=== PATIENT | male | born 1940 | race Caucasian/White ===

== ENCOUNTER 2023-02-12 07:30 | Observation (INO) ==
--- NOTE | 2023-01-23 10:51 | PAT Medication Instructions ---
Medication Instructions Date of Service January 23, 2023 Home Medications aspirin 81 mg capsule 81 mg PO HS atorvastatin 20 mg tablet 20 mg PO HS cholecalciferol (vitamin D3) 25 mcg (1,000 unit) capsule (Vitamin D3) 25 mcg PO QAM cyanocobalamin (vitamin B-12) 1,000 mcg tablet,extended release (Vitamin B-12 ER) 1,000 mcg PO QAM docusate sodium 100 mg capsule (Colace) 100 mg PO HS lysine 500 mg tablet (L-Lysine) 500 mg PO QAM metoprolol tartrate 25 mg tablet 12.5 mg PO BID DO NOT take the morning of surgery cholecalciferol (vitamin D3) 25 mcg (1,000 unit) capsule (Vitamin D3) 25 mcg PO QAM cyanocobalamin (vitamin B-12) 1,000 mcg tablet,extended release (Vitamin B-12 ER) 1,000 mcg PO QAM lysine 500 mg tablet (L-Lysine) 500 mg PO QAM Take morning of surgery With a small sip of water, OTHERWISE NOTHING TO EAT OR DRINK AFTER MIDNIGHT: metoprolol tartrate 25 mg tablet 12.5 mg PO BID Take evening before surgery aspirin 81 mg capsule 81 mg PO HS (unless surgeon directed otherwise) atorvastatin 20 mg tablet 20 mg PO HS docusate sodium 100 mg capsule (Colace) 100 mg PO HS metoprolol tartrate 25 mg tablet 12.5 mg PO BID Other Notes If you have any questions please call us at [phone] or [phone] or [phone] or [phone]
--- NOTE | 2023-01-28 11:03 | History & Physical Report ---
Date of Service January 28, 2023 DATE OF SURGERY: 02/12/23 PROCEDURE: Left Total Knee Arthroplasty Surgeon: Kevin Haley Assessment & Plan (1) Arthritis of knee, left: Plan: Risks and benefits of procedure discussed in detail today, patient would like to proceed with a left total knee replacement at [facility] as scheduled. will obtain medical clearance prior to surgery as well as obtain PATs at [facility]. Will place on ASA 81mg po bid x 1 month post op, f/u 2 weeks post op for routine post-operative care and x-ray, sooner if having any problems. discussed possible OPJ with HHPT. The risks and benefits have been discussed including, but not limited to, risk of infection, nerve injury, stiffness, loss of motion, failure to improve, etc. Reasonable outcomes and options of treatment were discussed. An explanation of appropriate alternatives to the procedure that may be advantageous were discussed and their risks and benefits, as well as the risks and benefits of not proceeding with treatment. I offered to answer any additional inquiries concerning the treatment involved. All the patient's questions were answered. The patient is agreeable, understanding of the treatment plan and alternatives, and wishes to proceed with the treatment plan. History of Present Illness Chief Complaint: left knee pain Primary Care Provider: Dariusz Leiva Adria is a pleasant 82-year-old male who presents for preop evaluation prior to his left total knee replacement. He states that he is having pain in his knee for many years now and is gradually worsened to the point that is now affecting his daily activities, he has tried oral anti-inflammatories and Tylenol without relief. Prior left knee arthroscopy by Dr. Haley approximate 20 years ago. Rates his current pain is 7 out of 10 is now affecting his daily activities including walking standing going up and down stairs at this point time is failed conservative measures and like proceed with left total knee replacement Allergies Allergy/AdvReac Type Severity Reaction Status Date / Time No Known Allergies Allergy Verified 01/22/23 13:51 Home Medications Medication Instructions Recorded Confirmed Type aspirin 81 mg capsule 81 mg PO HS 01/22/23 01/22/23 History atorvastatin 20 mg tablet 20 mg PO HS 01/22/23 01/22/23 History cholecalciferol (vitamin D3) 25 25 mcg PO QAM 01/22/23 01/22/23 History mcg (1,000 unit) capsule (Vitamin D3) cyanocobalamin (vitamin B-12) 1,000 mcg PO QAM 01/22/23 01/22/23 History 1,000 mcg tablet,extended release (Vitamin B-12 ER) docusate sodium 100 mg capsule 100 mg PO HS 01/22/23 01/22/23 History (Colace) lysine 500 mg tablet (L-Lysine) 500 mg PO QAM 01/22/23 01/22/23 History metoprolol tartrate 25 mg tablet 12.5 mg PO BID 01/22/23 01/22/23 History Past Med/Surg History Medical History Hyperlipidemia Hypertension Spinal stenosis 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 Hx of cardiac cath ~10 years ago, done due to age and activity; [facility]; f/u [facility] in [place] Hx of colonoscopy Hx of inguinal hernia repair bilat. Hx of squamous cell carcinoma excision 2019- in his upper jaw; also removed lymph nodes from his neck; done in [place]>currently has an obturator in his jaw that was placed during surgery for his jaw Hx of tonsillectomy Social History Smoking Status: Never smoker Second Hand Exposure: No; Hx Alcohol Use: Yes Alcohol type: beer Hx Substance Use: No Preferred Language: Faroese Communication Ability: Effective Sales Representative [employer] Furniture Required: No Beliefs That Will Affect Care: None Current Living Situation: Alone Feels Safe at Home: Yes Assistive Devices: Glasses and Other Review of Systems Review of Systems: All systems reviewed & are unremarkable except as noted in HPI & below Constitutional: no fever, no chills and no sweats Respiratory: no cough and no dyspnea Cardiovascular: no chest pain, no dyspnea and no orthopnea Gastrointestinal: no abdominal pain, no nausea and no vomiting Musculoskeletal: as per Subjective / HPI Physical Exam Physical Exam: HT: 5ft 10in WT: 72.3kg Constitutional: WD/WN, vitals as above no acute distress Respiratory: normal respiratory effort, lungs clear to auscultation no respiratory distress, no labored breathing and does not use accessory muscles Cardiovascular: RRR, no murmur, no edema Gastrointestinal (Abdomen): normal bowel sounds, soft, nontender, no hepatosplenomegaly Musculoskeletal: Knee: + knee abnormal to inspection (LEFT KNEE), + effusion (+1 effusion), + surgical incision (well healed portals), + limited ROM of knee (ROM 0/3/110), + knee ROM with crepitation, + joint line tenderness (medial joint line) and + Cece's sign positive; no deformity, no skin erythema, no ecchymosis, no valgus laxity, no varus laxity, anterior drawer test negative, Sergio's sign negative and pivot shift test negative Results & Data Results & Data ([facility]) Diagnostic Findings Left Knee X-ray: left knee series confirm advanced degenerative changes to the left knee, greatest medial compartments and patellofemoral joint, showing joint space narrowing, osteophyte formation and subchondral sclerosis. no acute bony pathology noted.
--- NOTE | 2023-01-28 14:27 | Anesthesiology Consultation ---
Date of Service January 28, 2023 Assessment & Plan (1) Encounter for pre-operative examination: Chart Review Chart Review: Acceptable Risk for Surgery (pending PCP clearance and cardio clearance ) and Patient seen in Pre Admission Testing - Awaiting PCP clearance 01/29/23 (please send optimization note re: elevated Hgb A1C with preop testing) - Awaiting cardio clearance (02/03/23) [facility] - Check BSG AM DOS Pt was found to be in new onset atrial fibrillation at [facility] appt. Pt was rate controlled and asymptomatic. Pt was taken to ER for further evaluation (report given to ER animal humane agent supervisor via phone). Incident report done (see ER note below) - Pt is NOT an Outpatient Joint candidate due to age and comorbidities Per [facility] appt on 01/28/23, patient denies any recent travel or large group activities. Pt is vaccinated for Covid. Will leave to surgeon's discretion if preop Covid testing needed. Educated on importance of using Covid precautions one week prior to surgery Seen in [facility] ER 01/28/23= seen for abnormal preop EKG. EKG showed atrial fibrillation. Patient asymptomatic. Patient takes aspirin daily as well as beta-lorena and pravastatin. Scheduled to see PCP tomorrow. Patient was stable for discharge and will follow up with PCP tomorrow. Will defer anticoagulation to PCP discretion Teaching & Discussion Pre-Anesthesia Teaching/Discussion Notes: Instructed NPO after midnight before surgery,except medications with 15 cc of water. Medication instructions provided according to the [facility] guidelines. History Surgery Operation Date: 02/12/23 11:00 Proposed Procedures p Left Total Knee Arthroplasty - Kevin Haley DO Height/Weight Height: 5 ft 10 in Weight: 72.3 kg Allergies Allergy/AdvReac Type Severity Reaction Status Date / Time No Known Allergies Allergy Verified 01/28/23 19:14 Medications Home Medications Medication Instructions Recorded Confirmed Last Taken aspirin 81 mg capsule 81 mg PO HS 01/22/23 01/28/23 01/27/23 atorvastatin 20 mg tablet 20 mg PO HS 01/22/23 01/28/23 01/27/23 cholecalciferol (vitamin D3) 25 25 mcg PO QAM 01/22/23 01/28/23 01/28/23 mcg (1,000 unit) capsule (Vitamin D3) cyanocobalamin (vitamin B-12) 1,000 mcg PO QAM 01/22/23 01/28/23 01/28/23 1,000 mcg tablet,extended release (Vitamin B-12 ER) docusate sodium 100 mg capsule 100 mg PO HS 01/22/23 01/28/23 01/27/23 (Colace) lysine 500 mg tablet (L-Lysine) 500 mg PO QAM 01/22/23 01/28/23 01/28/23 metoprolol tartrate 25 mg tablet 12.5 mg PO BID 01/22/23 01/28/23 01/28/23 08:00 Past Medical History Medical History (Updated 01/29/23 @ 10:27 by Bessy Beckham PA-C) Atrial fibrillation New onset- dx'ed in atrial fibrillation (patient had denied hx of a fib at [facility] appt 01/28/23) Per review of cardio note from 03/2022- pt with hx of transient episode of atrial fib in 2019 that had not reoccurred at that time CAD (coronary artery disease) Per cardio records- medical management Diabetes mellitus Presumed- Hgb A1C 01/28/23- 7.0 Hyperlipidemia Hypertension Spinal stenosis Squamous cell carcinoma Jaw - has obturator to right upper mouth (has hole to right upper mouth when prosthesis removed) Exercise / Class Metabolic Activity II 4-5 Yardwork/Stairs/Walk up hill (one flight of stairs - no chest pain or SOB ) Past Surgical History Surgical History (Updated 01/28/23 @ 14:55 by Bessy Beckham PA-C) History of back surgery for vertebral fx.-L2 History of urologic surgery Urolift Hx of arthroscopy of knee lt. Hx of cardiac cath ~10 years ago, done due to age and activity; [facility]; f/u [facility] in [place] Hx of colonoscopy Hx of inguinal hernia repair bilat. Hx of squamous cell carcinoma excision 2019- in his upper jaw; also removed lymph nodes from his left neck; done in [place]>currently has an obturator in his jaw that was placed during surgery for his jaw Hx of tonsillectomy Past Anesthesia History No Hx of Anesthesia Complications and No Family Hx of Anesthesia Complications History of PONV No Hx of PONV and No Hx of Motion Sickness Social History Smoking Status: Never smoker Do You Dip or Chew Tobacco: No Hx Alcohol Use: Yes Alcohol type: beer alcohol intake frequency: holidays/special occasions only Hx Substance Use: No substance use type: does not use Review of Systems Patient denies chest pain, shortness of breath, dyspnea on exertion, reflux, cough, wheezing, palpitations. No hx of seizures, stroke, [place], apnea/snoring. No hx of blood clots or blood transfusions Physical Exam Vital Signs VITALS BP 153/90 P 80 TEMP 98.0 SP02 96% RESP 16 Constitutional no acute distress ENMT Mouth: no TMJ clicking Thyromental Distance: > or= 3.5 Finger Breadths (3.5) Mallampati Class: II Obtrurator to upper jaw Neck neck extension not limited Respiratory normal respiratory effort; no respiratory distress Auscultation: lungs clear to auscultation bilaterally; no wheezes Cardiovascular Heart Sounds: no murmur Vessels: no carotid bruit Irregularly irregular Musculoskeletal Spine: no pain with cervical ROM Extremities: extremities normal to inspection Psychiatric Orientation: alert Lab Results Anesthesia Preop Results Results Anesthesia Widget: WBC 8.13 K/ul (4.8-10.8) 01/28/23 Hgb 15.9 g/dl (14.0-18.0) 01/28/23 Hct 46.5 % (42.0-52.0) 01/28/23 Plt 214 K/uL (130-400) 01/28/23 Na 142 mmol/L (136-145) 01/28/23 K 4.0 mmol/L (3.5-5.1) 01/28/23 Cl 105 mmol/L (98-107) 01/28/23 CO2 29 mmol/L (21-32) 01/28/23 BUN 21 mg/dl (6-23) 01/28/23 Creat 1.08 mg/dl (0.6-1.4) 01/28/23 Glucose Level 103 mg/dl (70-99(Fasting)) H 01/28/23 PT 11.8 Seconds (9.0-12.0) 01/28/23 PTT 28.3 Seconds (21.0-31.0) 01/28/23 INR 1.1 (0.9-1.1) 01/28/23 HA1c 7.0 % (4.5-5.6) H 01/28/23 Urine Color Yellow 01/28/23 Urine Appearance Clear (Clear) 01/28/23 Urine pH 5.5 (4.5-7.5) 01/28/23 Urine Specific [place] 1.019 (1.000-1.030) 01/28/23 Urine Protein Negative (Negative) 01/28/23 Urine Glucose (UA) Negative (Negative) 01/28/23 Urine Ketones Negative (Negative) 01/28/23 Urine Blood Negative (Negative) 01/28/23 Urine Nitrite Negative (Negative) 01/28/23 Urine Bilirubin Negative (Negative) 01/28/23 Urine Urobilinogen Negative (Negative) 01/28/23 Urine Leukocyte Esterase Negative (Negative) 01/28/23 Blood Type A Positive 01/28/23 Antibody Screen NEGATIVE 01/28/23 Testing Electrocardiogram Date: 01/28/23 Poor data quality Atrial fibrillation at 83bpm Chest X-Ray Date: 01/28/23 Findings: + NAD Echocardiogram Date: 07/08/19 EF: 55% LV Function: normal RWMA: + none Other Findings: no LVH Valvular Disease: + MR (mild) Mildly enlarged right heart chambers with normal systolic function Stress Test Date: 10/21/19 Type: nuclear Myocardial perfusion imaging done at rest and after treadmill stress is normal. No evidence of myocardial ischemia No evidence of myocardial infarction EF is 63% Wall motion is normal. COVID-19 Risk Screen Screening Information COVID-19 Screen Date: 01/28/23 Exposure 21 Days Family/Household +COVID Last 21 Days: No Exposure 10 Days Any COVID Exposure Last 10 Days: No Symptoms Last 10 Days Experienced COVID Sx Last 10 Days: No + COVID 0-90 Days COVID + in Last 0-90 Days: No Risk Plan COVID Risk Plan: No Risk Identified Patient Education COVID Preop Screening Education Complete: Yes
[~2023-02-12 07:30] MED LIST: ACETAMINOPHEN 500 MG TAB PO SCH; BUPIVACAINE 0.5 % 5 MG/1 ML PF 10ML VIAL ONE; FAMOTIDINE 20 MG TAB PO SCH; GABAPENTIN 300 MG CAP PO SCH; LR 500ML BOLUS, THEN 15ML/HR IV SCH; METOCLOPRAMIDE HCL 10 MG TABLET PO SCH; ROPIVACAINE 0.5% 5 MG/ML 30 ML VIAL ONE; ROPIVACAINE 0.5% HCL/PF 150 MG, BUPIVACAINE 0.75% MPF 20 ML, EPINEPHrine 30MG/30ML (OR ... INSTIL SCH; TRANEXAMIC ACID 1,000 MG **IV Pre-op IV SCH; ceFAZolin 2000MG 2,000 MG/15 ML SYR IV SCH; dexAMETHasone 4 MG TAB PO SCH
--- NOTE | 2023-02-12 08:52 | History & Physical Bridge Note ---
Date of Service February 12, 2023 History & Physical Bridge Note I have examined the patient, reviewed the History & Physical and in the interval since the performance of the History & Physical I have noted the following changes of clinical significance: no changes noted
[2023-02-12] MEDS ORDERED: TRANEXAMIC ACID 1,000 MG **IV Intra-op IV SCH (09:00)
[2023-02-12] MEDS ORDERED: Nursing to Pharmacy Communication SCH (09:15)
[2023-02-12] MEDS ORDERED: PROPOFOL IV EMULSION 10 MG/ML 20 ML VIAL IV ONE (09:15)
[2023-02-12] MEDS ORDERED: fentaNYL citrate 100 MCG/2 ML VIAL ONE (09:15)
[2023-02-12] MEDS ORDERED: MIDAZOLAM HCL 1 MG/ML 2ML VIAL ONE (09:15)
[2023-02-12] MEDS ORDERED: ONDANSETRON INJ 2 MG/ML 2 ML VIAL ONE (10:02)
[2023-02-12] MEDS ORDERED: GLYCOPYRROLATE 0.2 MG/ML VIAL ONE (10:04)
[2023-02-12] MEDS ORDERED: KETAMINE 50 MG/5 ML SYRINGE ONE (10:04)
[2023-02-12] MEDS ORDERED: fentaNYL citrate 100 MCG/2 ML VIAL IV PRN (11:03)
[2023-02-12] MEDS ORDERED: HYDROmorphone INJ 2 MG/ML SYR/VIAL IV PRN (11:03)
[2023-02-12] MEDS ORDERED: ePHEDrine sulfate 50 MG/ML AMP IV PRN (11:03)
[2023-02-12] MEDS ORDERED: ATROPINE SULFATE 0.1 MG/ML 10ML SYR IV PRN (11:03)
[2023-02-12] MEDS ORDERED: ONDANSETRON INJ 2 MG/ML 2 ML VIAL IV PRN ×2 (11:03→14:56)
[2023-02-12] MEDS ORDERED: ORTHO JOINT ANESTHETIC ONE (11:42)
[2023-02-12] MEDS ORDERED: LIDOCAINE 2% MPF LOCAL 5 ML VIAL INFIL ONE (12:17)
[2023-02-12] MEDS ORDERED: METOPROLOL TARTRATE 1 MG/ML VIAL IV ONE (12:32)
--- NOTE | 2023-02-12 13:12 | Operative Report ---
Post Operative Report Pre & Post Diagnosis Operation Date: 02/12/23 10:45 Pre-Op Diagnosis: Left Knee Osteoarthritis Post-Op Diagnosis: Left Knee Osteoarthritis I identified the patient and participated in the time-out.: Yes Procedure Operation Date: 02/12/23 10:45 Actual Procedures p Left Total Knee Arthroplasty(Left) utilizing [employer] journey 2 patient matched total knee arthroplasty size femur 7 tibia 5 Poly 12 mm patella 32 alfred- Kevin Haley DO Surgeon Kevin Haley DO Clerical Car Checker [facility] Estimated Blood Loss 5 Findings Consistent with Post-Op Diagnosis Patient presents with severe end-stage tricompartmental degenerative joint disease left knee varus alignment flexion contracture 6 degrees with eburnated [id number] medial compartment patellofemoral compartment marginal osteophytes subchondral sclerosis subchondral cystic changes with a moderate to large effusion Specimens Bone and cartilage Drains Medium bore Hemovac Anesthesia Type MAC Spinal Regional Complications none Disposition Accompanied Patient To Recovery: No Disposition: Recovery Room Indications Patient presents with severe end-stage tricompartmental degenerative joint disease left knee failed attempted conservative management occluding physical therapy viscosupplementation corticosteroid injection relative rest activity modification patient presents with the above intraoperative findings Description of Procedure After proper prepping and draping of the left lower extremity anterior midline incision was made over the region of the extensor extensor mechanism after meticulous hemostasis was obtained and maintained in subcutaneous tissues a medial parapatellar incision was made The patella was subluxed lateralward the medial lateral gutter were cleaned from any hypertrophic synovitis and scar tissue of the distal femoral block was placed and the distal femoral osteotomy cut was made subsequently the chamfers anterior and posterior osteotomy cuts were made utilizing the 4-in-1 block the tibia was subsequently subluxed anteriorward medial and ateral meniscal remnants were excised in their entirety remnants of the anterior and posterior cruciate ligaments were excised in their entirety excellent exposure of the proximal tibia was obtained the tibial osteotomy guide was placed on the proximal tibial osteotomy cut was made once again the knee was irrigated with copious amounts of sterile saline solution the patella was subsequently everted lateralward thickened scar tissue around the patella was removed the patella was subsequently cut utilizing a freehand technique and was drilled prepared for final preparation and placement of patella socially flexion-extension gaps were checked and the equal and symmetric trials were placed to the appropriate femoral and tibial trials with poly-spacer being placed for equal flexion and extension gaps and full range of motion including extension to 0 and flexion to 140 the trial components after having been taken to recovery range of motion was subsequently removed meticulous hemostasis was obtained and maintained subsequently a knee block injection of joint cocktail including ropivacaine 0.5% 150 mg. Bupivacaine 0.5% epinephrine 1-200,030 mL's toradol 30 mg dexamethasone 4 mg ketamine 10 mg clonidine 100 micrograms normal saline solution 30 mg was infiltrated into the soft tissues of the posterior knee medial lateral gutters and periosteal synovium special attention was paid to protect neurovascular structures at all times subsequently trial components having been removed the knee was irrigated with sterile saline solution. debris was removed the proximal tibia was subsequently prepared and was made ready for the placement of the tibial component tibial component was also cemented and tamped into position the femoral component was subsequently placed and cemented in the position the patellar component was subsequently cemented in position because hemostasis once again obtained and maintained wound having been thoroughly irrigated with debridement and debridement lavage was performed as well as a medial parapatellar incision closed with #1 Vicryl in interrupted fashion subcutaneous was closed with #2 Vicryl skin was closed with skin clips. PA-C was necessary for prepping and drapping as well as wound closure of deep fascia Sub cutaneous tissue and skin and was necessary for the case. A sterile compressive dressing was placed patient was taken to recovery in stable condition of report dictated by Tera I attest to the content of the Intraoperative Record and any orders documented therein. Any exceptions are noted below.Due to the complex nature of the procedure, the entire surgery was performed with the operational assistance of [facility]. The medical laboratory assistant, under direct supervision, was involved in the actual performance of all aspects of the surgical procedure including hemostasis, tissue retraction and incision, instrument management, patient positioning, and wound closure. I attest to the content of the Intraoperative Record and any orders documented therein. Any exceptions are noted below.
--- NOTE | 2023-02-12 14:02 | Anesthesiology Progress Note ---
Date of Service February 12, 2023 Anesthesia Post Procedure Vital Signs Vital Signs: Temp Pulse Resp BP Pulse Ox O2 Del Method 02/12/23 08:24 36.2 C L 72 20 142/92 H 99 Room Air Pain Intensity Left Knee: Pain Intensity: 7 Transfer of Care Handoff Completed per policy Notes Mental Status: alert / awake / arousable and participated in evaluation Patient Amnestic to Procedure: Yes Nausea / Vomiting: adequately controlled Pain: adequately controlled Airway Patency, RR, SpO2: stable & adequate BP & HR: stable & adequate Hydration State: stable & adequate Anesthetic Complications: no major complications apparent and Pt Satisfied with anesthetic care
--- NOTE | 2023-02-12 14:30 | XRay Report ---
LEFT KNEE 2 VIEWS History: Left total knee arthroplasty. Degenerative arthritis. Postop. FINDINGS: The patient is status post a left total knee arthroplasty. The hardware is intact. No fract ure or dislocation. Surgical drains are in place. IMPRESSION: Left total knee arthroplasty. No evidence for hardware complication. ACT 112: Negative or not required by law. Electronically signed by: Nate Harris M.D. 02/12/2023 2:28 PM
[2023-02-12] MEDS ORDERED: METOCLOPRAMIDE HCL INJ 5 MG/ML 2 ML VIAL IV PRN (14:56)
[2023-02-12] MEDS ORDERED: diphenhydrAMINE Capsule 25 MG CAP PO PRN (14:56)
[2023-02-12] MEDS ORDERED: oxyCODONE HCL IR 5 MG TAB (IMMEDIATE RELEASE) PO PRN (14:56)
[2023-02-12] MEDS ORDERED: NALOXONE HCL 0.4 MG/1 ML VIAL/CARP IV PRN (14:56)
[2023-02-12] MEDS ORDERED: MAGNESIUM HYDROXIDE SUSP 30 ML UDC PO PRN (14:56)
[2023-02-12] MEDS ORDERED: HYDROmorphone INJ 0.5 MG/0.5 ML SYR IV PRN (14:56)
[2023-02-12] MEDS ORDERED: bisacodyL 10 MG SUPP PR PRN (14:56)
[2023-02-12] MEDS: SODIUM CHLORIDE 0.9% 1000ML 1,000 ML IV SCH (15:26)
[2023-02-12] MEDS: ACETAMINOPHEN 500 MG TAB PO SCH ×2 (16:13→21:44)
[2023-02-12] MEDS ORDERED: SENNA 8.6 MG TAB PO SCH (21:00)
[2023-02-12] MEDS ORDERED: ASPIRIN 81 MG ECTAB PO SCH (21:00)
[2023-02-12] MEDS ORDERED: NON-FORMULARY MEDICATION (Lysine [L-Lysine] 500 mg Tablet) PO SCH (21:00)
[2023-02-12] MEDS ORDERED: ATORVASTATIN 20 MG TAB PO SCH (21:00)
[2023-02-12] MEDS ORDERED: DOCUSATE SODIUM 100 MG CAP PO SCH (21:00)
[2023-02-12] MEDS: METOPROLOL TARTRATE 25 MG TAB PO SCH (21:37)
[2023-02-12] MEDS: DOCUSATE SODIUM 100 MG CAP PO SCH (21:40)
[2023-02-12] MEDS: ceFAZolin 2000MG 2,000 MG/15 ML SYR IV SCH (21:48)
[2023-02-13] MEDS: SODIUM CHLORIDE 0.9% 1000ML 1,000 ML IV SCH (02:29)
[2023-02-13] MEDS: ceFAZolin 2000MG 2,000 MG/15 ML SYR IV SCH (03:43)
[2023-02-13] MEDS: ACETAMINOPHEN 500 MG TAB PO SCH (05:42)
[2023-02-13 06:59] LABS: Hematocrit (blood only) 36.7 % (42.0-52.0); Hemoglobin 12.6 g/dl (14.0-18.0); Mean Corpuscular Hemoglobin 33.5 pg (25.0-34.0); Mean Corpuscular Hgb Conc 34.3 g/dL (32.0-36.0); Mean Corpuscular Volume 97.6 fL (80.0-100.0); Mean Platelet Volume 10.6 fL (9.4-12.4); Platelet Count 211 K/uL (130-400); RDW Coefficient of Variation 13.2 % (11.5-14.5); RDW Standard Deviation 47.6 fL (36.4-46.3); Red Blood Count 3.76 M/uL (4.70-6.10); White Blood Count 15.27 K/ul (4.8-10.8)
[2023-02-13 07:36] LABS: BUN Creatinine Ratio 21.2 (10-20); Calcium 8.5 mg/dl (8.5-10.1); Creatinine Clr Calc Pharmacy 52.4 ml/min; Est GFR (African American) 70.3 ml/min; Est GFR (Non-African American) 60.6 ml/min; Potassium 4.9 mmol/L (3.5-5.1)
[2023-02-13] MEDS: METOPROLOL TARTRATE 25 MG TAB PO SCH (08:25)
[2023-02-13] MEDS: DOCUSATE SODIUM 100 MG CAP PO SCH (08:27)
[2023-02-13] MEDS ORDERED: CYANOCOBALAMIN (B-12) 500 MCG TABLET PO SCH (09:00)
[2023-02-13] MEDS ORDERED: CHOLECALCIFEROL 1,000 UNITS 25 MCG TAB PO SCH (09:00)
[2023-02-13] MEDS ORDERED: APIXABAN 5 MG TABLET PO SCH (09:00)
[2023-02-13] MEDS ORDERED: MULTIVITAMIN TAB PO SCH (09:00)
--- NOTE | 2023-02-13 11:00 | Orthopedic Progress Note ---
Date of Service February 13, 2023 Assessment & Plan (1) History of total left knee replacement: Plan: Pt is POD #1 s/p left TKA -PT/OT -Pain regime as written -DVT ppx with Eliquis 5mg PO BID x30 days, TEDs, and SCDs -Drain to be removed today and patient is stable from an orthopedic standpoint to be discharged home. Admission and Anticipated Discharge Date Admission Date: February 12, 2023 Subjective Pt is POD #1 s/p Left TKA -Patient doing well this morning, sitting up in bed, eating breakfast -Pain has been well controlled -Denies CP, SOB, abdominal pain, fevers or chills Review of Systems Review of Systems: All systems reviewed & are unremarkable except as noted in Subjective Physical Exam Physical Exam: LLE with dressing and drain in place, drain with minimal output appreciated, area is c/d/i. Calf is soft and nontender and negative Jack sign. Able to wiggle toes without issue, full ROM of left ankle, distal perfusion and sensation are grossly intact. Results & Data Vital Signs (Past 12 Hours) Vital Signs Temp Pulse Resp BP Pulse Ox O2 Del Method 02/13/23 10:38 36.6 C 78 18 136/81 98 02/13/23 10:36 Room Air 02/13/23 07:07 36.6 C 78 18 136/81 98 Room Air 02/13/23 03:59 36.7 C 79 18 134/77 97 Room Air 02/13/23 00:10 36.6 C 79 18 133/80 97 Room Air Laboratory Results Laboratory Results WBC 15.27 K/ul (4.8-10.8) H 02/13/23 06:42 RBC 3.76 M/uL (4.70-6.10) L 02/13/23 06:42 Hgb 12.6 g/dl (14.0-18.0) L 02/13/23 06:42 Hct 36.7 % (42.0-52.0) L 02/13/23 06:42 MCV 97.6 fL (80.0-100.0) 02/13/23 06:42 MCH 33.5 pg (25.0-34.0) 02/13/23 06:42 MCHC 34.3 g/dL (32.0-36.0) 02/13/23 06:42 RDW Std Deviation 47.6 fL (36.4-46.3) H 02/13/23 06:42 RDW Coeff of Lyn 13.2 % (11.5-14.5) 02/13/23 06:42 Plt Count 211 K/uL (130-400) 02/13/23 06:42 MPV 10.6 fL (9.4-12.4) 02/13/23 06:42 Sodium 138 mmol/L (136-145) 02/13/23 06:42 Potassium 4.9 mmol/L (3.5-5.1) 02/13/23 06:42 Chloride 106 mmol/L (98-107) 02/13/23 06:42 Carbon Dioxide 27 mmol/L (21-32) 02/13/23 06:42 Anion Gap 5 (3-11) 02/13/23 06:42 BUN 24 mg/dl (6-23) H 02/13/23 06:42 Creatinine 1.13 mg/dl (0.6-1.4) 02/13/23 06:42 Est Cr Clr Drug Dosing 52.4 ml/min 02/13/23 06:42 Est GFR ( Amer) 70.3 ml/min 02/13/23 06:42 Est GFR (Non-Af Amer) 60.6 ml/min 02/13/23 06:42 BUN/Creatinine Ratio 21.2 (10-20) H 02/13/23 06:42 Glucose 152 mg/dl (70-99(Fasting)) H 02/13/23 06:42 POC Glucose 132 mg/dl (70-99) H 02/12/23 14:49 Calcium 8.5 mg/dl (8.5-10.1) 02/13/23 06:42 SARS-CoV-2, RNA, NAAT NEGATIVE (NEGATIVE) 02/12/23 Unknown Impressions Knee X-Ray 02/12/23 13:56 LEFT KNEE 2 VIEWS History: Left total knee arthroplasty. Degenerative arthritis. Postop. FINDINGS: The patient is status post a left total knee arthroplasty. The froy dware is intact. No fracture or dislocation. Surgical drains are in place. IMPRESSION: Left total knee arthroplasty. No evidence for hardware complication. ACT 112: Negative or not required by law. Electronically signed by: Nate Harris M.D. 02/12/2023 2:28 PM
--- NOTE | 2023-02-14 07:57 | Discharge Summary ---
Date of Service date of discharge: February 13, 2023 date of admission: 02/12/23 Admission HPI Per Admitting Provider Adria is a pleasant 82-year-old male who presents for preop evaluation prior to his left total knee replacement. He states that he is having pain in his knee for many years now and is gradually worsened to the point that is now affecting his daily activities, he has tried oral anti-inflammatories and Tylenol without relief. Prior left knee arthroscopy by Dr. Haley approximate 20 years ago. Rates his current pain is 7 out of 10 is now affecting his daily activities including walking standing going up and down stairs at this point time is failed conservative measures and like proceed with left total knee replacement Principal Diagnosis left knee arthritis Discharge Exam Musculoskeletal left knee: NVDI, calf SNT, negative jase sign. DP palpable, able to wiggle toes/ankle movement without difficulty. CONSTANTINE dressing clean dry and intact. expected post-operative bruising noted. Discharge Data Allergies Allergy/AdvReac Type Severity Reaction Status Date / Time No Known Allergies Allergy Verified 02/12/23 08:10 Procedures Performed Operation Date: 02/12/23 10:45 Actual Procedures p Left Total Knee Arthroplasty(Left) - Kevin Haley DO Ordered Studies 02/12/23 05:00 US - OR guided needle placemen Routine Hospital Course (1) History of total left knee replacement: Pt is POD #1 s/p left TKA -PT/OT -Pain regime as written -DVT ppx with Eliquis 5mg PO BID x30 days, TEDs, and SCDs -Drain to be removed today and patient is stable from an orthopedic standpoint to be discharged home. Total Time Total Time Spent Total Time Spent (In Minutes): 20 Discharge Plan Discharge Items Patient Disposition: Home - Home Health Services Reason For Visit: Left Knee Osteoarthritis Discharge Diagnosis: Left total knee replacement Activity: Per Instructions section Weightbearing: Left weightbearing Weightbearing Comment: WBAT to LLE with walker Non-emergency contact: Surgeon Call non-emergency contact if: your pain is not controlled, your temperature is above 101.5, your wound has increased redness, your wound has increased drainage and your wound pain has increased Follow-up/Referrals: Kevin Haley DO [Surgeon] - (f/u with Dr. Haley or his PA Fabien Juarez in 2 weeks for your post-operative check up) Dariusz Leiva DO [Primary Care Provider] - Diet: Regular Addtl Attending Provider Instructions: ACTIVITY RECOMMENDATIONS: SELF CARE INSTRUCTIONS AFTER TOTAL KNEE REPLACEMENT A. You may need to continue a physical therapy program after discharge from the hospital. There are several options available to you. Your doctor will assist you in selecting the best one for you. 1. An out-patient facility 2 to 3 times a week for therapy or home therapy. 2. Continue working on all exercises taught to you in the hospital. Your goals should be to increase bending of your knee to 90 degrees and beyond and to fully straighten your knee. B. You may progress at your own pace from walking with a walker or crutches to a cane; then to no assistive devices. C. Make walking a part of your daily routine. Be up as much as comfortable with rest periods throughout the day. Rest with leg elevation is very important. Use the ice wrap frequently for the first 3-4 weeks. D. There are no restrictions on activities. You may ride in a car, shop, participate in nip wrapper and all social activities. E. Wear the long elastic stockings (ROSANGELA hose) 20 hours a day for 2 weeks after surgery. They can be removed several times a day for laundering and for a bath. F. You may shower, no tub baths until cleared by your doctor. SPECIAL CARE INSTRUCTIONS: VERY IMPORTANT TO READ AND REVIEW A. There are a few signs you need to watch for after you are home. Call [facility] if you notice any of the followin. Increased severe knee pain. Some pain is expected especially when you exercise. 2. Increased swelling in your leg or knee; pain or swelling of the calf muscle in either lower leg. 3. Any fluid drainage from the incision. 4. Shortness of breath or chest pain. B. Please call [facility] at if you have any concerns or questions about your operation or recovery. The doctor or his nurse will return your call promptly. C. You must take antibiotics before dental work, bladder, bowel or other surgery. Your doctor will provide you with a permanent care to carry describing this precaution. IMPORTANT: * REMEMBER TO TAKE ASPIRIN, 81 MG, TWICE DAILY FOR 4 WEEKS UNLESS OTHERWISE DIRECTED. THIS IS YOUR BLOOD THINNER. * HIGH RISK PATIENTS MAY BE PRESCRIBED A STRONGER BLOOD THINNER. THIS WILL BE PROVIDED AT DISCHARGE. * CALL IF INCREASED PAIN, REDNESS, DRAINAGE OR FEVER GREATER THAT 101. * WEAR ROSANGELA HOSE 20 HOURS PER DAY FOR 2 WEEKS. DRESSING INSTRUCTIONS * CONSTANTINE Dressing- This is a large suction dressing covering your incision. This will help pull any excess drainage from the wound and allow your incision to heal properly. You may shower with this if you can keep the unit outside of the shower. If any bleeding or leakage is noted please call your doctor's office. This will remain on your incision for 7 days and then should be removed. This can be done yourself or by the home nursing staff if applicable. The entire unit is disposable once removed. Once removed, keep incision clean and dry. If redness or drainage is noted, please call your surgeon. ONCE CONSTANTINE IS REMOVED, FOLLOW THESE INSTRUCTIONS: DERMABOND Prineo- This is a mesh tape dressing that is covered with glue. It should remain in place until the incision is properly healed, usually 10-14 days. This dressing is designed to naturally slough off. You may trim the excess mesh tape as it peels off. Incision may be briefly wet in a shower. Dry immediately by blotting with a clean, dry towel. Do not bath or swim until instructed by your doctor. Do not scratch, rub, or pick at the dressing. Do not apply any topical ointments or lotions until dressing is completely removed and/or instructed by your doctor. There may be a small piece of suture material at one end of your incision. Do not pull or trim this. If it is bothersome or catching on clothing, you may cover it with a band-aid. IF INCISION IS LEAKING THROUGH DRESSING, CALL THE OFFICE . FOLLOW UP VISIT: If appointment is not already scheduled: Please call [facility] to make a follow-up appointment for 2 weeks after your surgery at . Pending Studies at Discharge: No Stand-Alone Forms: My Checkr, Smoking Cessation Medications and DC Order Prescriptions: New acetaminophen 500 mg capsule 1,000 mg PO Q8H 14 Days Qty: 84 0RF oxycodone 5 mg tablet 5 mg PO Q4H MDD 6 PRN (Reason: pain) Qty: 30 0RF Eliquis 5 mg Tablet 5 mg PO BID 30 Days Qty: 60 0RF cefadroxil 500 mg capsule 500 mg PO BID 14 Days Qty: 28 1RF Continued cyanocobalamin (vitamin B-12) [Vitamin B-12] 1,000 mcg Tablet Extended Release 1,000 mcg PO QAM atorvastatin 20 mg Tablet 20 mg PO HS docusate sodium [Colace] 100 mg Capsule 100 mg PO HS lysine [L-Lysine] 500 mg Tablet 500 mg PO HS cholecalciferol (vitamin D3) [Vitamin D3] 25 mcg (1,000 unit) Capsule 25 mcg PO QAM metoprolol tartrate 25 mg Tablet 12.5 mg PO BID Discontinued aspirin 81 mg Capsule 81 mg PO HS Admission Data Admit Date/Time: 02/12/23 13:56 Attending Provider: Kevin Haley Admit Provider: Kevin Haley Primary Care Provider: Dariusz Leiva Other Interventions: Discharge Summary Assessment (RN) Last Done: 02/13/23 10:38
== END 2023-02-13 12:10 | disposition home health service (06) ==
LOC: ASU 07:30 → 3E 07:30